=== PATIENT | female | born 1955 | race Caucasian/White ===

== ENCOUNTER 2016-06-26 11:03 | Emergency (ER) | payer MEDICAID, MEDICARE ==
[~2016-06-26] VITALS: Ht 162.6 cm; Wt 61.8 kg
[2016-06-26] MEDS ORDERED: SODIUM CHLORIDE FLUSH 3 ML SYR IV PRN (11:05)
[2016-06-26] MEDS ORDERED: SODIUM CHLORIDE 250 ML IV PRN (11:05)
[2016-06-26] MEDS ORDERED: GLUCAGON EMERGENCY 1 MG/KIT IV ONE (11:20)
[2016-06-26] MEDS: SODIUM CHLORIDE FLUSH 10 ML SYR IV PRN ×2 (11:27→16:00)
[2016-06-26] MEDS ORDERED: PIPERACILLIN/TAZOBACTAM 4.5 GM in SODIUM CHLORIDE 100 ML IV ONE (11:30)
--- NOTE | 2016-06-26 11:30 | NUR ---
Pt responding to pain and brings hand up to nose to scratch.
[2016-06-26 11:34] LABS: MEAN CORPUSCULAR HEMOGLOBIN 31.3 PG (26.0-34.0); MEAN CORPUSCULAR HGB CONC 33.6 g/dL (31.0-37.0); MEAN CORPUSCULAR VOLUME 93 FL (80-100); MEAN PLATELET VOLUME 10.3 FL (6.0-9.5); PLATELET COUNT 437 10^3uL (150-450); WHITE BLOOD COUNT 23.24 10^3uL (4.0-11.0)
[2016-06-26] MEDS ORDERED: HYALURONIDASE SQ ONE (11:35)
[2016-06-26] MEDS ORDERED: [UNRECOGNIZED DRUG - OTHER] SQ ONE (11:35)
--- NOTE | 2016-06-26 11:43 | NUR ---
pt does not respond to questions or verbal. pt responds to some needle sticks.
[2016-06-26 12:36] LABS: ALBUMIN 4.4 g/dL (3.4-5.0); CALCULATED IONIZED CALCIUM 4.9 mg/dL (3.8-4.6); MAGNESIUM* 2.2 mg/dL (1.6-2.3); TOTAL PROTEIN 7.2 g/dL (6.4-8.5)
--- NOTE | 2016-06-26 12:52 | NUR ---
this nurse informed Grayson of blood pressure 80/50. no orders at this time. VORB CT head without.
--- NOTE | 2016-06-26 13:17 | NUR ---
limited medical hx from facility paperwork
[2016-06-26 13:41] LABS: BAND NEUTROPHILS % 2 % (0-6); EOSINOPHILS % 0 % (0-4); LYMPHOCYTES # 0.9 #; MONOCYTES # 1.4 #; MONOCYTES % 6 % (3-11); RBC MORPH NORMAL (NORMAL); SEGMENTED NEUTROPHILS % 88 % (51-67); TOTAL CELLS COUNTED 100
[2016-06-26] MEDS ORDERED: FLUMAZENIL (ROMAZICON) 0.1 MG/ML 5 ML VIAL IV ONE (13:55)
[2016-06-26] MEDS ORDERED: NALOXONE 0.4 MG/ML (NARCAN) 1 ML VIAL IV ONE (14:10)
[2016-06-26 14:12] LABS: COLOR,URINE Yellow; GLUCOSE, URINE (UA) Negative (Negative); LEUKOCYTE ESTERASE ,URINE Negative (Negative); PH,URINE 5.5 (5.0 - 8.0)
[2016-06-26 14:17] LABS: BILIRUBIN,URINE 3+ (Negative); CLARITY,URINE Slightly Cloudy
[2016-06-26 14:27] LABS: URINE CENTRIFUGED VOLUME 12 mL
[2016-06-26] MEDS ORDERED: ACETAMINOPHEN 650 MG SUPP (TYLENOL) PR ONE (15:30)
[2016-06-26 16:12] VITALS: BP 110/71
[2016-06-26] MEDS: D5 NS IV 1,000 ML IV SCH ×2 (16:26→21:25)
--- NOTE | 2016-06-26 16:27 | NUR ---
d5w started at 1600 and sent with pt on transfer
== END 2016-06-26 16:10 | disposition short-term general hospital (02) ==
LOC: ED 11:07
DX: E11.649 Type 2 diabetes mellitus with hypoglycemia without coma (principal); Z79.899 Other long term (current) drug therapy; R50.9 Fever, unspecified; Z79.84 Long term (current) use of oral hypoglycemic drugs; F20.9 Schizophrenia, unspecified; I10 Essential (primary) hypertension; R58 Hemorrhage, not elsewhere classified
CPT/HCPCS: 36415; 51702; 70450; 74022; 80053; 80178; 81003; 81015; 82550; 82553; 83735; 83880; 84146; 84484; 85025; 85610; 85730; 86140; 87040; 87088; 93005; 96361; 96365; 96367; 96372; 96375; 99285; A9270; J2310; J2543; J3470; J3490; J7030; J7042; J7050; 99291

== ENCOUNTER → 2016-06-26 | Outpatient (CLI) | payer MEDICAID ==
[~2016-06-26] MED LIST: AC325T PO; ALBU2.5V12 INH; ALBU8.5H2 IH; ASPI-586 PO; ATOR10TA PO; BISA10SU6 RC; CETI-262 PO; CTLP20T PO; FAMO-119 PO; HALO10TA PO; HALO5TAB PO; INSU100I14 SQ; INSU100V32 SC; LISI5TAB14 PO; LITH300T3 PO; LORA10TA7 PO; MELA3TAB34 PO; MELA5TAB5 PO; METF1000 PO
== END ==
LOC: EMS 10:46
PROVIDERS: ATTEND Emergency Medicine
DX: R41.82 Altered mental status, unspecified (principal)

== ENCOUNTER → 2016-06-26 | Outpatient (CLI) | payer MEDICAID | LOC: EMS 15:50 | PROVIDERS: ATTEND Emergency Medicine | DX: G21.0 Malignant neuroleptic syndrome (principal); N19 Unspecified kidney failure; R41.82 Altered mental status, unspecified; E16.2 Hypoglycemia, unspecified ==

== ENCOUNTER 2016-07-25 23:06 | Emergency (ER) | payer MEDICAID ==
[~2016-07-25] VITALS: Ht 160 cm; Wt 79.5 kg
[2016-07-25 23:41] LABS: MEAN CORPUSCULAR VOLUME 92 FL (80-100); MEAN PLATELET VOLUME 9.2 FL (6.0-9.5); PLATELET COUNT 313 10^3uL (150-450); WHITE BLOOD COUNT 14.82 10^3uL (4.0-11.0)
[2016-07-25] MEDS ORDERED: HALOPERIDOL 5 MG/ML (HALDOL) 1 ML AMP IM ONE (23:45)
[2016-07-25] MEDS ORDERED: LORazepam 2 MG/ML (ATIVAN) 1 ML VIAL IV ONE (23:45)
[2016-07-25] MEDS: SODIUM CHLORIDE FLUSH 10 ML SYR IV PRN ×2 (23:49→23:53)
[2016-07-25 23:50] LABS: ANION GAP 11.7 MEQ/L (3-15)
[2016-07-25] MEDS ORDERED: SODIUM CHLORIDE FLUSH 3 ML SYR IV ONE (23:50)
[2016-07-25 23:52] LABS: MEAN CORPUSCULAR HEMOGLOBIN 32.8 PG (26.0-34.0); MEAN CORPUSCULAR HGB CONC 35.7 g/dL (31.0-37.0)
--- NOTE | 2016-07-26 00:05 | NUR ---
haldol given im not iv so no start stop times
[2016-07-26 00:25] LABS: BAND NEUTROPHILS % 0 % (0-6); EOSINOPHILS % 0 % (0-4); LYMPHOCYTES # 3.4 #; MONOCYTES # 0.6 #; MONOCYTES % 4 % (3-11); RBC MORPH NORMAL (NORMAL); SEGMENTED NEUTROPHILS % 73 % (51-67); TOTAL CELLS COUNTED 100
--- NOTE | 2016-07-26 00:30 | NUR ---
ASKED DR BANUELOS ABOUT THE NS AND HE SAID NOT TO ADMINISTER IT AT THIS TIME
--- NOTE | 2016-07-26 00:46 | NUR ---
report given to Radha Laguna LPN at [facility]. She is to call for transportation
--- NOTE | 2016-07-26 00:50 | NUR ---
PATIENT ASKED TO GO TO TOILET RNS Nadine BOLDEN AND Milton SANDERS IN ROOM PATIENT STOOD AND WALKED TO TOILET APPROX 8 FT TOTAL STEADY GAIT NO PAIN. PT PULLED DOWN OWN PANTS AND VOIDED UA OBTAINED. PT WALKED BACK RN TOLD HER TO HOP INTO BED AND PT WAS ABLE TO GET BACK IN BED ON OWN. Nadine BOLDEN NURSING STAFFING COORDINATOR STAYING AT BEDSIDE WITH PATIENT D/T PT HAD BEEN AGITATED AND RESTLESS.
--- NOTE | 2016-07-26 00:55 | NUR ---
Dixon Laguna LPN CALLED BACK AND SAID THAT SHE CAN'T FIND ANYONE TO PICK PT UP. RN EXPLAINED THAT IF PT HAS TO GO BACK BY EMS THEN THE [facility] WOULD BE RESPONSIBLE FOR IT AND THAT SHE SHOULD CALL THE RHEUMATOLOGY SPECIALIST TO MAKE SURE IT WOULD BE OKAY FIRST. SHE SAID SHE WOULD
[2016-07-26 01:00] LABS: BILIRUBIN,URINE Negative (Negative); COLOR,URINE Yellow; GLUCOSE, URINE (UA) Negative (Negative); LEUKOCYTE ESTERASE ,URINE Trace (Negative); UROBILINOGEN,URINE 0.2 mg/dL (0.2-1.0)
--- NOTE | 2016-07-26 01:10 | NUR ---
CALLED NF NO ANSWER
[2016-07-26 01:11] LABS: CLARITY,URINE Slightly Cloudy
[2016-07-26 01:12] LABS: URINE CENTRIFUGED VOLUME 12 mL
--- NOTE | 2016-07-26 01:22 | NUR ---
CALLED NF PHONE RANG 15 TIMES NO ANSWER
[2016-07-26] MEDS ORDERED: ACETAMINOPHEN 500 MG TAB (TYLENOL) PO ONE (01:25)
--- NOTE | 2016-07-26 01:35 | NUR ---
SPOKE TO AUNG REESE AT AND SHE NOT ABLE TO GET TRANSPORTATION SO TO SEND PT BACK BY EMS. SPOKE WITH SECTION HAND Nadine BOLDEN WHO HAS BEEN SETTING IN ROOM WITH PATIENT AND SHE SAID OK TO CALL EMS SO CALLED EMS TO TRANSPORT
[2016-07-26 01:45] VITALS: BP 95/65
--- NOTE | 2016-07-26 01:48 | NUR ---
EMS HERE AND WHILE THEY TRANSFER HER TO THE [facility] SHE THREW UP. EMESIS CONSISTED OF PHELGM AND FOOD AND WATER. DID CHANGE HER T SHIRT. LET DR BANUELOS KNOW OF PT THROWING UP AND ASKED IF HE HAD ANY NEW ORDERS OR WANTED TO GIVE HER ANYTHING AND HE SAID NO. PT SAID SHE FELT BETTER AFTER EMESIS. DID LET NURSE AT KNOW ABOUT THIS. PT D/C BACK TO [facility]
--- NOTE | 2016-07-26 02:45 | NUR ---
CALLED [facility] SPOKE WITH Dixon REESE LPN WHO IS NURSE TAKING CARE OF PT TO SEE HOW PT IS DOING AND IF ANY FURTHER EMESIS. CERTIFIED SUBSTANCE ABUSE COUNSELOR REPORTED THAT PT IS A "MESS, SHE IS TEARING UP HER ROOM, REFUSING TO COOPERATE AND SITTING IN HER OWN PEE AND WANTING A CIGARETTE" RN ASKED IF PT HAD ANY MORE EMESIS EPISODES AND CERTIFIED SUBSTANCE ABUSE COUNSELOR REPORTED NO.
--- NOTE | 2016-07-26 02:45 | NUR ---
CONT: RN DID ENC. AUNG REESE IF PT HAS PRN MED FOR AGITATION TO SEE IF SHE COULD GIVE IT. DID GO OVER THE TIME THAT WE GAVE THE PT HALDOL, TYLENOL AND ATIVAN HERE. IF NO PRN ORDER THEN ENC HER TO TALK TO THE PT PRIMARY CARE DR Augie REESE ALSO SAID THAT SHE HAD THE CLIENT ADMINISTRATOR GO TO PATIENTS ROOM AND CLIENT ADMINISTRATOR FOUND 2 PACKS OF CIGARETTES HOARDED. TAX ANALYST WAS TALKING IN A LOUD TONE OF VOICE AND BECAME VERY QUIET AFTER SENIOR FIELD ENGINEER TOLD HER THAT AGITATION COULD BE D/T TO THE DX OF [place], AND THERE WAS NOT ANYTHING WE COULD DO HERE ABOUT THAT DR BANUELOS ALREADY CLEARED PT TO RETURN TO AND THE C SCAN WAS NEGATIVE AND NO OTHER FINDINGS AT THIS TIME. PT NO LONGER HAD SLURRED SPEACH AND WAS ABLE TO MOVE FREELY AND WALK WHEN SHE WAS DISCHARGED.
== END 2016-07-26 02:00 | disposition home or self-care (01) ==
LOC: ED 23:10
DX: E87.1 Hypo-osmolality and hyponatremia (principal); R47.81 Slurred speech; F20.9 Schizophrenia, unspecified
CPT/HCPCS: 36415; 70450; 80048; 81003; 81015; 85025; 87088; 96372; 96374; 99285; A9270; J1630; J2060; 99283

== ENCOUNTER → 2016-07-25 | Outpatient (CLI) | payer MEDICAID | LOC: EMS 23:03 | PROVIDERS: ATTEND Emergency Medicine | DX: R47.81 Slurred speech (principal); R41.82 Altered mental status, unspecified; R11.10 Vomiting, unspecified; F20.89 Other schizophrenia ==

== ENCOUNTER → 2016-07-26 | Outpatient (CLI) | payer MEDICAID | LOC: EMS 02:30 | PROVIDERS: ATTEND Emergency Medicine | DX: S82.891A Other fracture of right lower leg, initial encounter for closed fracture (principal); X58.XXXA Exposure to other specified factors, initial encounter; E87.1 Hypo-osmolality and hyponatremia ==